=== PATIENT | female | born 1995 | race Caucasian/White ===

== ENCOUNTER 2019-06-23 08:28 | Emergency (ER) | payer MEDICAID ==
[~2019-06-23] VITALS: Ht 157.5 cm; Wt 60.0 kg
[~2019-06-23 08:28] MED LIST: AMO250L PO
[2019-06-23 08:30] VITALS: BP 101/40
[2019-06-23 09:08] LABS: URINE HCG NEGATIVE (NEG)
[2019-06-23] MEDS ORDERED: BENZ-16 PO (09:10)
[2019-06-23 09:14] LABS: CLARITY,URINE CLOUDY (Clear); COLOR,URINE YELLOW (Yellow); GLUCOSE, URINE NEGATIVE (Neg); KETONES,URINE NEGATIVE (Neg); LEUKOCYTE ESTERASE ,URINE LARGE (Neg); NITRITES, URINE NEGATIVE (Neg); OCCULT BLOOD,URINE TRACE-LYSED (Neg); PROTEIN,URINE NEGATIVE (Neg); UROBILINOGEN,URINE 0.2 E.U/dL (0.2-1.0)
[2019-06-23 09:20] LABS: UA COLLECTION TYPE CLN CATCH MIDSTREAM
[2019-06-23 09:21] LABS: BACTERIA,URINE 1+ /HPF (Neg); MUCUS STRANDS MODERATE /LPF (Neg); RBC,URINE 0-2 /HPF (0-2); SQUAMOUS EPITHELIAL CELL,UR MODERATE /LPF (FEW); WBC,URINE TNTC /HPF (0-4)
[2019-06-23 09:22] LABS: TRANSITIONAL EPI CELLS,URINE FEW /HPF
[2019-06-23] MEDS ORDERED: DOXY100C43 PO (09:27)
== END 2019-06-23 09:31 | disposition home or self-care (01) ==
LOC: ER 08:28
DX: J06.9 Acute upper respiratory infection, unspecified (principal); N39.0 Urinary tract infection, site not specified; F15.90 Other stimulant use, unspecified, uncomplicated
CPT/HCPCS: 81001; 81025; 87088; 99283

== ENCOUNTER 2020-06-23 18:27 | Emergency (ER) | payer MEDICAID ==
[~2020-06-23] VITALS: Ht 157.5 cm; Wt 62.7 kg
[2020-06-23] MEDS ORDERED: NEOM10SO7 LEFT EAR (18:57)
[2020-06-23 19:15] VITALS: BP 139/80
== END 2020-06-23 19:12 | disposition home or self-care (01) ==
LOC: ER 18:27
DX: S00.412A Abrasion of left ear, initial encounter (principal); H60.92 Unspecified otitis externa, left ear; F41.9 Anxiety disorder, unspecified; F15.90 Other stimulant use, unspecified, uncomplicated; F19.90 Other psychoactive substance use, unspecified, uncomplicated; Z86.19 Personal history of other infectious and parasitic diseases; Z72.89 Other problems related to lifestyle; Z79.2 Long term (current) use of antibiotics; X58.XXXA Exposure to other specified factors, initial encounter; Y93.89 Activity, other specified; Y92.89 Other specified places as the place of occurrence of the external cause; Y99.8 Other external cause status
CPT/HCPCS: 99283